=== PATIENT | female | born 1940 | race Caucasian/White ===

== ENCOUNTER → 2017-09-14 | Outpatient (CLI) | payer MEDICARE, OTHER ==
[~2017-09-14] MED LIST: ACIDOPHILUS1 EAC1 PO; ADVIL; ALBU90OI6 INH; ALBU90OI61 INH; ALLO100 PO; ALOE VERA CAPSULE PO; ASPI325; ASPI81CH PO; ASPI81EC PO; ATOR10; B Complete1 EACH PO; BALANCED B-1001 EACH; BUME2; CALCA600CH; CALMAGZIN PO; CHOL10002; CHOL10002 PO; CHONDROITIN; CO Q10 PO; CO Q10100 MG PO; CONEST.625; CONESTTC VAG; CREON DR 12,001 EACH PO; CREON DR 24,001 EACH PO; CYAN100; Co Q-10100 MG PO; DIGO.25; DIGO.25 PO; DIPASPER; DRON400T PO; Desyrel50 MG PO; ERGO400 PO; FURO40 PO; Folic Acid0.8 MG PO; GLUCHON; HYDACE5 PO; HYDCHL25 PO; HYDR1TAB94 PO; IBUHYD PO; LISI20; LISI20 PO; LISI5 PO; LORTAB 7.5-3251 EACH PO; Lipo-Flavonoid1 EACH PO; MAGCHL64ER PO; MAGOXI400 PO; MECL25 PO; MEDR10 PO; METO25ER PO; METO50ER PO; METR500 PO; MILK THISTLE; MSM; MULTAQ 400 MG; MULTAQ 400 MG PO; MULTAQ PO; MULVITMIND PO; MULVITMINF PO; Micro-K10 MEQ; NITR.4SL; NYST100TC TOP; NYST100TO TOP; OMEP20ER PO; OXYACE5T PO; OXYC10ER PO; POTA10T PO; POTASSIUM; POTCHL10ER PO; PRED20 PO; PSYL5.85P PO; RALO60; RANI150; RANI150 PO; SANCTURA XR PO; SIMV20 PO; SIMV80 PO; SOTO80 PO; SULTRIDS PO; TOLT2 PO; TOLT4 PO; TRAZ50; TRAZ50 PO; TRIHYD; TRIHYD253A; TYLENOL; UBID10 PO; UBID100 PO; VICODIN 5-3001 EACH; VITAMIN D; VITAMIN D32000 UNI1 PO; VITB100; VITB100 PO; WARF3 PO; WARF4 PO; WARF5; WARF5 PO; [UNRECOGNIZED DRUG - OTHER]; [UNRECOGNIZED DRUG - OTHER] PO
[2017-09-14 14:40] LABS: BASOPHILS ABSOLUTE AUTO 0.04 K/mm3 (0.00-0.23); BASOPHILS PERCENT AUTO 1 % (0-2); EOSINOPHILS ABSOLUTE AUTO 0.07 K/mm3 (0.00-0.68); EOSINOPHILS PERCENT AUTO 1 % (0-6); Hematocrit 38.1 % (33.0-51.0); Hemoglobin 12.9 g/dL (11.5-16.0); IMMATURE GRAN ABSOLUTE AUTO 0.03 K/mm3 (0.00-0.10); IMMATURE GRAN PERCENT AUTO 0 % (0-1); LYMPHOCYTES ABSOLUTE AUTO 1.14 K/mm3 (0.84-5.20); LYMPHOCYTES PERCENT AUTO 14 % (21-46); MONOCYTES ABSOLUTE AUTO 0.88 K/mm3 (0.16-1.47); MONOCYTES PERCENT AUTO 11 % (4-13); Mean Corpuscular HGB 34.3 pg (26.0-34.0); Mean Corpuscular HGB Conc 33.9 g/dL (31.5-36.5); Mean Corpuscular Volume 101 fL (80-100); Mean Platelet Volume 9.5 fL (9.1-12.4); NEUTROPHILS ABSOLUTE AUTO 5.81 K/mm3 (1.96-9.15); NEUTROPHILS PERCENT AUTO 73 % (41-73); Platelet Count 160 K/mm3 (150-400); RDW Coefficient Variation 12.7 % (11.7-14.2); RDW Standard Deviation 47.2 fL (35.1-46.3); Red Blood Cell Count 3.76 M/mm3 (3.80-5.20); White Blood Cell Count 7.97 K/mm3 (4.00-11.30)
[2017-09-14 14:46] LABS: Bun/Creatinine Ratio 19.5 (12.0-20.0); Calcium, Blood 8.6 mg/dL (8.5-10.1); Creatinine, Blood 1.28 mg/dL (0.40-1.00)
== END ==
LOC: LAB SHORT 14:27 → LAB EV 14:27
PROVIDERS: Family Medicine
DX: R10.31 Right lower quadrant pain (principal)
CPT/HCPCS: 80048; 85025; 87077; 87086; 87147; 87186

== ENCOUNTER → 2017-10-23 | Outpatient (CLI) | payer MEDICARE, OTHER | END | disposition home or self-care (01) | LOC: LAB EV 17:30 → LAB SHORT 17:30 | DX: N39.0 Urinary tract infection, site not specified (principal) | CPT/HCPCS: 87077; 87086; 87186 ==

== ENCOUNTER 2018-02-01 09:37 | Day surgery (SDC) | payer MEDICARE, OTHER ==
[~2018-02-01] VITALS: Ht 160 cm; Wt 82.4 kg
[2018-02-01] MEDS ORDERED: XARELTO15 MG (11:00)
== END 2018-02-01 12:25 | disposition home or self-care (01) ==
LOC: ORSCSDS 09:37
PROVIDERS: Surgery
PROC: 0DBL8ZX Excision of Transverse Colon, Via Natural or Artificial Opening Endoscopic, Diagnostic (ICD-10-PCS; principal; 2018-02-01 10:45)
PROC: 0DBK8ZX Excision of Ascending Colon, Via Natural or Artificial Opening Endoscopic, Diagnostic (ICD-10-PCS; principal; 2018-02-01 10:45)
PROC: 0DBM8ZX Excision of Descending Colon, Via Natural or Artificial Opening Endoscopic, Diagnostic (ICD-10-PCS; principal; 2018-02-01 10:45)
DX: Z12.11 Encounter for screening for malignant neoplasm of colon (principal); D12.2 Benign neoplasm of ascending colon; D12.3 Benign neoplasm of transverse colon; K63.5 Polyp of colon; Z86.010 Personal history of colon polyps; Z87.891 Personal history of nicotine dependence; I10 Essential (primary) hypertension; I48.0 Paroxysmal atrial fibrillation; E78.5 Hyperlipidemia, unspecified; I25.10 Atherosclerotic heart disease of native coronary artery without angina pectoris; Z86.718 Personal history of other venous thrombosis and embolism; Z86.73 Personal history of transient ischemic attack (TIA), and cerebral infarction without residual deficits; Z79.899 Other long term (current) drug therapy
CPT/HCPCS: 88305; J7120

== ENCOUNTER → 2018-04-13 | Outpatient (CLI) | payer MEDICARE, OTHER ==
[~2018-04-13] MED LIST changes: +XARELTO15 MG
[2018-04-13 15:32] LABS: BASOPHILS ABSOLUTE AUTO 0.04 K/mm3 (0.00-0.23); BASOPHILS PERCENT AUTO 1 % (0-2); EOSINOPHILS ABSOLUTE AUTO 0.09 K/mm3 (0.00-0.68); EOSINOPHILS PERCENT AUTO 2 % (0-6); Hemoglobin 14.3 g/dL (11.5-16.0); IMMATURE GRAN ABSOLUTE AUTO 0.02 K/mm3 (0.00-0.10); IMMATURE GRAN PERCENT AUTO 0 % (0-1); LYMPHOCYTES ABSOLUTE AUTO 1.47 K/mm3 (0.84-5.20); LYMPHOCYTES PERCENT AUTO 29 % (21-46); MONOCYTES ABSOLUTE AUTO 0.57 K/mm3 (0.16-1.47); MONOCYTES PERCENT AUTO 11 % (4-13); Mean Corpuscular HGB 34.5 pg (26.0-34.0); Mean Corpuscular Volume 101 fL (80-100); Mean Platelet Volume 9.4 fL (9.1-12.4); NEUTROPHILS ABSOLUTE AUTO 2.85 K/mm3 (1.96-9.15); NEUTROPHILS PERCENT AUTO 57 % (41-73); Platelet Count 161 K/mm3 (150-400); RDW Coefficient Variation 12.5 % (11.7-14.2); RDW Standard Deviation 46.9 fL (35.1-46.3); Red Blood Cell Count 4.14 M/mm3 (3.80-5.20); White Blood Cell Count 5.04 K/mm3 (4.00-11.30)
[2018-04-13 15:43] LABS: Albumin, Blood 3.5 g/dL (3.4-5.0); Albumin/Globulin Ratio 0.9 (0.8-1.8); Bilirubin, Total 0.5 mg/dL (0.1-1.0); Bun/Creatinine Ratio 14.1 (12.0-20.0); Calcium, Blood 8.8 mg/dL (8.5-10.1); Creatinine, Blood 1.35 mg/dL (0.40-1.00); Globulin, Blood 3.8 g/dL (2.2-4.0); Potassium, Blood 4.2 mmol/L (3.5-5.5); Total Protein, Blood 7.3 g/dL (6.4-8.2)
== END | disposition home or self-care (01) ==
LOC: LAB EV 15:26 → LAB SHORT 15:26
PROVIDERS: Physician Assistant
DX: R60.9 Edema, unspecified (principal)
CPT/HCPCS: 80053; 83880; 85025

== ENCOUNTER → 2018-09-25 | Outpatient (CLI) | payer MEDICARE, OTHER | END | disposition home or self-care (01) | LOC: LAB EV 15:55 → LAB SHORT 15:55 | DX: R30.0 Dysuria (principal) | CPT/HCPCS: 87077; 87086; 87186 ==

== ENCOUNTER → 2018-11-07 | Outpatient (CLI) | payer MEDICARE, OTHER ==
[~2018-11-07] MED LIST changes: +CYAN500 PO; +TRIM100 PO
[2018-11-07 18:13] LABS: BASOPHILS ABSOLUTE AUTO 0.03 K/mm3 (0.00-0.23); BASOPHILS PERCENT AUTO 0 % (0-2); EOSINOPHILS ABSOLUTE AUTO 0.04 K/mm3 (0.00-0.68); EOSINOPHILS PERCENT AUTO 1 % (0-6); Hematocrit 43.1 % (33.0-51.0); Hemoglobin 14.5 g/dL (11.5-16.0); IMMATURE GRAN ABSOLUTE AUTO 0.03 K/mm3 (0.00-0.10); IMMATURE GRAN PERCENT AUTO 0 % (0-1); LYMPHOCYTES ABSOLUTE AUTO 1.12 K/mm3 (0.84-5.20); LYMPHOCYTES PERCENT AUTO 13 % (21-46); MONOCYTES ABSOLUTE AUTO 0.68 K/mm3 (0.16-1.47); MONOCYTES PERCENT AUTO 8 % (4-13); Mean Corpuscular HGB 34.3 pg (26.0-34.0); Mean Corpuscular HGB Conc 33.6 g/dL (31.5-36.5); Mean Corpuscular Volume 102 fL (80-100); Mean Platelet Volume 9.9 fL (9.1-12.4); NEUTROPHILS ABSOLUTE AUTO 6.84 K/mm3 (1.96-9.15); NEUTROPHILS PERCENT AUTO 78 % (41-73); Platelet Count 164 K/mm3 (150-400); RDW Coefficient Variation 12.6 % (11.7-14.2); RDW Standard Deviation 47.3 fL (35.1-46.3); Red Blood Cell Count 4.23 M/mm3 (3.80-5.20); White Blood Cell Count 8.74 K/mm3 (4.00-11.30)
[2018-11-07 18:21] LABS: Albumin, Blood 3.5 g/dL (3.4-5.0); Albumin/Globulin Ratio 0.9 (0.8-1.8); Bilirubin, Total 1.1 mg/dL (0.1-1.0); Creatinine, Blood 1.31 mg/dL (0.40-1.00); Potassium, Blood 4.8 mmol/L (3.5-5.5); Total Protein, Blood 7.5 g/dL (6.4-8.2)
== END ==
LOC: LAB EV 18:05 → LAB SHORT 18:05
PROVIDERS: Physician Assistant
DX: R10.31 Right lower quadrant pain (principal)
CPT/HCPCS: 80053; 83690; 85025

== ENCOUNTER 2018-11-08 16:18 | Inpatient (IN) | payer MEDICARE, OTHER ==
[~2018-11-08] VITALS: Ht 160 cm; Wt 89.8 kg
[~2018-11-08 16:18] MED LIST changes: -CYAN500 PO; -TRIM100 PO; -XARELTO15 MG; +XARELTO15 MG PO
--- NOTE | 2018-11-08 17:09 | NUR ---
PT RECENTLY TO ROOM. ASSISTED WITH ADL'S AND ROOM BY OTHER FEMALE RN AND FINANCIAL OPERATIONS ANALYST. FAMILY PRESENT. DR CURRY RECENTLY TO ROOM TO SEE PT. DISCUSSED WITH THAT PT REPORTED TO BE REPORTED TO HAVE UTI EARLIER TODAY.
[2018-11-08 18:55] LABS: Source, Urine Clean Catch
[2018-11-08 19:02] LABS: Bilirubin, Urine Neg (Neg); Blood, Urine 2+ (Neg); Glucose Qualitative, Urine Neg (Neg); Ketones, Urine Neg (Neg); Leukocyte Esterase, Urine 1+ (Neg); Nitrite, Urine Neg (Neg); Protein, Urine 3+ (Neg); Specific Gravity, Urine 1.015 (1.003-1.022); Urobilinogen, Urine NORM (Normal)
--- NOTE | 2018-11-08 19:20 | NUR ---
REPORT GIVEN TO HS RN, FAMILY PRESENT.
[2018-11-08 20:19] LABS: Appearance, Urine Clear (Clear); Color, Urine Yellow (P-Yellow)
[2018-11-08 20:20] LABS: Bacteria Few /hpf; Red Blood Cells, Urine Rare /hpf (0-2); Squamous Epithelial Cells Rare /hpf (Few); White Blood Cells, Urine 0-2 /hpf (0-5)
[2018-11-08] MEDS ORDERED: CYAN500 PO (20:27)
[2018-11-08] MEDS ORDERED: TRIM100 PO (20:28)
[2018-11-09 04:56] LABS: BASOPHILS ABSOLUTE AUTO 0.01 K/mm3 (0.00-0.23); BASOPHILS PERCENT AUTO 0 % (0-2); EOSINOPHILS ABSOLUTE AUTO 0.03 K/mm3 (0.00-0.68); EOSINOPHILS PERCENT AUTO 0 % (0-6); Hematocrit 39.7 % (33.0-51.0); IMMATURE GRAN ABSOLUTE AUTO 0.03 K/mm3 (0.00-0.10); IMMATURE GRAN PERCENT AUTO 0 % (0-1); LYMPHOCYTES ABSOLUTE AUTO 0.91 K/mm3 (0.84-5.20); LYMPHOCYTES PERCENT AUTO 10 % (21-46); MONOCYTES ABSOLUTE AUTO 0.66 K/mm3 (0.16-1.47); MONOCYTES PERCENT AUTO 7 % (4-13); Mean Corpuscular HGB 34.9 pg (26.0-34.0); Mean Corpuscular HGB Conc 32.7 g/dL (31.5-36.5); Mean Platelet Volume 10.2 fL (9.1-12.4); NEUTROPHILS PERCENT AUTO 82 % (41-73); Platelet Count 130 K/mm3 (150-400); RDW Coefficient Variation 12.6 % (11.7-14.2); Red Blood Cell Count 3.72 M/mm3 (3.80-5.20); White Blood Cell Count 8.94 K/mm3 (4.00-11.30)
[2018-11-09 05:03] LABS: Mean Corpuscular Volume 107 fL (80-100)
[2018-11-09 05:16] LABS: Albumin, Blood 2.6 g/dL (3.4-5.0); Albumin/Globulin Ratio 0.7 (0.8-1.8); Bilirubin, Total 1.6 mg/dL (0.1-1.0); Bun/Creatinine Ratio 13.8 (12.0-20.0); Calcium, Blood 8.1 mg/dL (8.5-10.1); Creatinine, Blood 1.45 mg/dL (0.40-1.00); Globulin, Blood 3.9 g/dL (2.2-4.0); Potassium, Blood 4.1 mmol/L (3.5-5.5); Total Protein, Blood 6.5 g/dL (6.4-8.2)
--- NOTE | 2018-11-09 15:00 | NUR ---
ASSUMED CARE OF PATIENT AT 1450. MEDICATED FOR PAIN PER PATIENT REQUEST. WILL MONITOR.
--- NOTE | 2018-11-09 18:20 | NUR ---
PATIENT MEDICATED FOR PAIN, THEN SLEPT. UP WITH 2 PERSON ASSIST TO VOID. BACK TO BED. NO C/O AT THIS TIME. PATIENT REQUIRES REMINDERS RE: CONDITION AND PLAN OF CARE, NPO.
--- NOTE | 2018-11-10 05:23 | NUR ---
SHIFT SUMMARY LYING IN SEMI FOWLERS WITH EYES CLOSED. HAD 1 WATERY BROWN BM WITH PARTICULATES. DENIES FURTHER PAIN, DISCOMFORT, OR OTHER NEEDS AT THIS TIME. SAFETY MEASURES IN PLACE. WILL GIVE HAND OFF TO ONCOMING SHIFT USING SBAR.
--- NOTE | 2018-11-10 11:59 | NUR ---
ASSESSMENT ASSESSMENT REVIEWED BY DAPHNE STUDENT NURSE. BLE APPEAR DUSKY, PULSES PRESENT AND PALPABLE, CAP REFILL WNL. PT GETTING UP TO VOID FREQUENTLY. PT IS A 1-2 ASSIST WITH WALKER AND GAIT BELT WHEN OOB.
--- NOTE | 2018-11-10 17:22 | NUR ---
SHIFT SUMMARY PT WAS ADMITTED FOR APPENDICITIS, PT ALSO HAS INFLAMMATION OF ILLEUM, 1 PERSON TRANSFER WITH GAIT BELT AND WALKER; USES BEDPAN, COMMODE, AND ATTENDS/PULLUPS. PT HAS ACTIVE UTI AND IS ON ISO PRECAUTIONS FOR ESBL. PT HAS CT SCAN TOMOROW AND CONTRAST DRINK IS IN THE ROOM TO BE STARTED AT 2200, XERALTO IS ON HOLD, PT IS ON TELE, HX A-FIB, STRESS INCONTINENCE.
--- NOTE | 2018-11-10 18:34 | NUR ---
SHIFT SUMMARY PAIN HAS BEEN MANAGED WITH REPOSITIONING THIS SHIFT. PT IS A 1 ASSIST WITH GAIT BELT AND WALKER WHEN OOB. PT HAS URINARY URGENCY. PLAN FOR CT SCAN TOMORROW TO RE-EVALUATE ILEITIS AND APPENDICITIS. PT WILL START OVERNIGHT PREP AT 2200. VSS. WILL MONITOR UNTIL REPORT TO ONCOMING RN.
[2018-11-11 04:50] LABS: BASOPHILS ABSOLUTE AUTO 0.01 K/mm3 (0.00-0.23); BASOPHILS PERCENT AUTO 0 % (0-2); EOSINOPHILS ABSOLUTE AUTO 0.13 K/mm3 (0.00-0.68); EOSINOPHILS PERCENT AUTO 2 % (0-6); Hematocrit 33.8 % (33.0-51.0); IMMATURE GRAN ABSOLUTE AUTO 0.03 K/mm3 (0.00-0.10); IMMATURE GRAN PERCENT AUTO 0 % (0-1); LYMPHOCYTES ABSOLUTE AUTO 0.77 K/mm3 (0.84-5.20); LYMPHOCYTES PERCENT AUTO 11 % (21-46); MONOCYTES ABSOLUTE AUTO 0.65 K/mm3 (0.16-1.47); MONOCYTES PERCENT AUTO 10 % (4-13); Mean Corpuscular HGB 34.9 pg (26.0-34.0); Mean Corpuscular HGB Conc 32.5 g/dL (31.5-36.5); Mean Corpuscular Volume 107 fL (80-100); Mean Platelet Volume 9.5 fL (9.1-12.4); NEUTROPHILS ABSOLUTE AUTO 5.23 K/mm3 (1.96-9.15); NEUTROPHILS PERCENT AUTO 77 % (41-73); Platelet Count 139 K/mm3 (150-400); RDW Coefficient Variation 12.2 % (11.7-14.2); RDW Standard Deviation 47.9 fL (35.1-46.3); Red Blood Cell Count 3.15 M/mm3 (3.80-5.20); White Blood Cell Count 6.82 K/mm3 (4.00-11.30)
[2018-11-11 05:09] LABS: Anion Gap 5 mmol/L (6-16); Blood Urea Nitrogen 16 mg/dL (8-24); Bun/Creatinine Ratio 17.1 (12.0-20.0); CO2, Blood 26 mmol/L (21-32); Calcium, Blood 8.1 mg/dL (8.5-10.1); Chloride, Blood 106 mmol/L (98-108); Creatinine, Blood 0.94 mg/dL (0.40-1.00); Glomerular Filtration Rate >60 (60-); Glucose, Blood 117 mg/dL (70-99); Magnesium, Blood 2.1 mg/dL (1.6-2.4); Phosphorus, Blood 2.5 mg/dL (2.5-4.9); Potassium, Blood 3.8 mmol/L (3.5-5.5); Sodium, Blood 137 mmol/L (136-145)
--- NOTE | 2018-11-11 07:12 | NUR ---
SHIFT SUMMARY LYING IN SEMI FOWLERS WITH EYES CLOSED. RESTED WELL THIS SHIFT. TO DRINK NEXT DOSE OF CT CONTRAST. DENIES PAIN, DISCOMFORT, OR FURTHER NEEDS AT THIS TIME. SAFETY MEASURES IN PLACE. WILL GIVE HAND OFF TO ONCOMING SHIFT USING SBAR.
--- NOTE | 2018-11-11 07:20 | NUR ---
ASSESSMENT PT WAS ASSESSED BY THIS RN. SHIFT ASSESSMENT DOCUMENTATION BY DAPHNE STUDENT NURSE WAS REVIEWED AND THIS RN AGREES WITH DOCUMENTATION.
--- NOTE | 2018-11-11 11:29 | NUR ---
PT EDUCATION GAVE PATIENT AN INSPIRATION SPIROMETER AND INSTRUCTED THEM ON ITS PURPOSE AND USE.
--- NOTE | 2018-11-11 15:49 | NUR ---
ELEVATED BP BP ELEVATED WITH AFTERNOON VS. PT REPORTED PAIN, DILAUDID GIVEN. BP REASSESSED SBP GREATER THAN 160. HYDRALAZINE ADMINISTERED PER ORDER. WILL MONITOR.
--- NOTE | 2018-11-11 18:17 | NUR ---
CHEST PAIN, INCREASED BP AND CHEST PAIN PT COMPLAINED OF CHEST PAIN AND FELLING LIKE HER HEART WAS RACING AT APPROXIMATELY 1647; BP OF 180/78 AND HR OF 124 AT THAT TIME. EKG WAS DONE BY USHA BARRAGAN, EKG SHOWED AFIB WITH RVR. DR. CURRY CONTACTED WITH RESULTS OF EKG. METOPROLOL 5MG IV WAS GIVEN, TELE IN PLACE. BP AND HR RE-ASSESSED AT 1736, BP OF 166/[address] CURRY NOTIFIED OF CONTINUED CHEST PAIN AND HEAVINESS. NITRO ORDERED AND GIVEN AT 1748, PT STATED IT DID NOT HELP TO RELIEVE PAIN. BP EVALUATED AT 1750 141/60 HR OF 103. SECOND DOSE OF NITRO WAS GIVEN AT 1756 BP 112/67. 1801 PT DENIED CHEST PAIN, REPORTED MILD TIGHTNESS, BP 124/64. PT ALSO REPORTING INCREASED PAIN TO RLQ. DR. PATRICIO NOTIFIED OF PT'S CHANGE IN CONDITION PER DR. CURRY'S REQUEST. PT REMAINS IN AFIB AT THIS TIME. PT HAS REMAINED ALERT AND ORIENTED WITH USUAL FORGETFULNESS. WILL CONTINUE TO MONITOR.
--- NOTE | 2018-11-11 18:42 | NUR ---
ATTEMPTED TO PLACE CALL TO DR. CURRY, PHONE WAS NOT ANSWERED. INITIAL CALL PLACED TO DR. CURRY SINCE HE WAS THE DOCTOR COVERING FOR EFM DURING DAY SHIFT. CALL PLACED TO DR. HILARIO HOSPITALIST WHO IS [employer] AFTER 5PM. DR. HILARIO NOTIFIED THAT PT REMAINS IN AFIB GREATER THAN 120BPM, AND CONTINUED CHEST TIGHTNESS. PT IS SOMEWHAT UNRELIABLE WHEN REPORTING PAIN. WHEN ASKED ABOUT PAIN SHE REPORTS ABD PAIN. WHEN ASKED ABOUT CHEST PAIN SHE REPORTS TIGHTNESS BUT DENIES NEED FOR MEDICATION TO TREAT CHEST DISCOMFORT. FLACC SCALE SHOWS PT AT 2/10 FOR PAIN. ACCORDING TO TELE MONITOR PT RAPIDLY CHANGES BETWEEN AFIB >[address] HILARIO WAS NOTIFIED OF PT'S HR AND CONTINUED CHEST DISCOMFORT. DR. HILARIO MADE CHANGES TO ANTIBIOTICS AND ORDERED A ONE TIME DOSE OF METOPROLOL TARTRATE, AND LACTIC ACID. AFTER RECEIVING ORDERS FROM DR. HILARIO, DR. CURRY RETURNED EARLIER CALL AND GAVE ORDERS TO TRANSFER PT TO PCU. CLINICAL COORDINATOR LEIA NASSAR RN AND NONA RN NOTIFIED OF ORDERS. PT REMAINS ALERT AND PLEASANTLY CONFUSED/ FORGETFUL. PT'S DAUGHTER KELLY NOTIFIED OF CHANGE IN PT'S CONDITION AND PLAN TO TRANSFER TO PCU PER THE PATIENT'S REQUEST.
--- NOTE | 2018-11-11 19:20 | NUR ---
SHIFT SUMMARY PT WAS ADMITTED FOR APPEDICITIS, IS IN ISO FOR esbl IN URINE, PT HAD ct SCAN THIS AM, XERALTO IS ON HOLD FOR A-FIB, PT IS ON HEPARIN, PT IS FORGETFUL. PT WENT INTO A-FIB THIS PM, WAS GIVEN 5MG IV METOPROLOL AND NITROGLYCERIN FOR CHEST TIGHTNESS. CURRENTLY RECEIVING CLINIMIX. HAS URGENCY INCONTENANCE, IS ON TELE, PT IS NPO,
--- NOTE | 2018-11-11 20:05 | NUR ---
SHIFT SUMMARY ABD PAIN HAS BEEN MANAGED WITH DILAUDID THIS SHIFT. PT HAS BEEN PLEASANTLY CONFUSED/FORGETFUL. PT HAS DIFFICULTY GIVING A PAIN RATING. PT WENT INTO AFIB WITH CHEST PAIN THIS AFTERNOON. PLAN TO TRANSFER TO PCU AT THIS TIME. REPORT GIVEN TO NONA BARRAGAN.
[2018-11-12 04:37] LABS: Hematocrit 36.1 % (33.0-51.0); Hemoglobin 11.9 g/dL (11.5-16.0); Mean Corpuscular HGB 34.1 pg (26.0-34.0); Mean Platelet Volume 9.8 fL (9.1-12.4); Platelet Count 162 K/mm3 (150-400); RDW Coefficient Variation 12.3 % (11.7-14.2); RDW Standard Deviation 46.1 fL (35.1-46.3); Red Blood Cell Count 3.49 M/mm3 (3.80-5.20); White Blood Cell Count 5.33 K/mm3 (4.00-11.30)
[2018-11-12 04:40] LABS: Mean Corpuscular Volume 103 fL (80-100)
[2018-11-12 04:57] LABS: Alanine Aminotransfer (ALT/SGP 23 U/L (12-78); Albumin, Blood 2.2 g/dL (3.4-5.0); Albumin/Globulin Ratio 0.5 (0.8-1.8); Alk Phos 64 U/L (50-136); Anion Gap 6 mmol/L (6-16); Aspartate Aminotrans (AST/SGOT 37 U/L (12-37); Bilirubin, Total 0.5 mg/dL (0.1-1.0); Blood Urea Nitrogen 14 mg/dL (8-24); Bun/Creatinine Ratio 17.3 (12.0-20.0); CO2, Blood 25 mmol/L (21-32); Calcium, Blood 8.5 mg/dL (8.5-10.1); Chloride, Blood 109 mmol/L (98-108); Creatinine, Blood 0.81 mg/dL (0.40-1.00); Globulin, Blood 4.1 g/dL (2.2-4.0); Glomerular Filtration Rate >60 (60-); Glucose, Blood 119 mg/dL (70-99); Potassium, Blood 3.7 mmol/L (3.5-5.5); Sodium, Blood 140 mmol/L (136-145); Total Protein, Blood 6.3 g/dL (6.4-8.2)
--- NOTE | 2018-11-12 07:26 | NUR ---
SHIFT SUMMARY REPORT RECEIVED FROM YUNG CASTELLANO AND PATIENT TRANSFERED TO PCU 13 AT APPROX 2031 LAST NIGHT. PATIENT WAS IN AFIB IN THE LOW 100'S UPON ARRIVAL TO THE UNIT. AT APPROX 2230 PATIENT CONVERTED TO SINUS RHYTHM IN THE 70'S AND HAS BEEN SINUS RHYTHM THROUGHOUT THE REST OF THE NIGHT PER UNIVERSITY PRESIDENT. PATIENT FORGETFUL BUT PLEASENT UPON ARIVAL TO THE UNIT. PATIENT STATED THAT HER CHEST, "FELT A LITTLE FUNNY." BUT HAD NO FURTHER COMPLAINTS OF CHEST PAIN OR DISCOMFORT THROUGHOUT THE NIGHT. PATIENT'S IV FLUIDS AND CLINIMIX RUNNING PER ORDERS. IV ABX GIVEN PER ORDERS LAST NIGHT. PATIENT APPEARED TO SLEEP WELL THROUGHOUT THE NIGHT. PATIENT CURRENTLY APPEARS TO BE ASLEEP. REPORT GIVEN TO ONCLISANDRO BARRAGAN.
--- NOTE | 2018-11-12 08:52 | NUR ---
Received report and assumed care of patient. When patient awakes, she is up to BSC. Pt able to get up SBA. Pt is on RA and continues to be in NSR in 60's. Dr. Pires to see pt this AM he states that he is going to hold of on surgery at this point. He would like her diet advanced to clear liquid and see how she tolerates. Dr. Barragan to the room, agrees with Dr. Pires and will follow care. Will continue to follow orders and monitor patient. Call light within easy reach, bed armed and locked, non-skid socks in place, SCDs on for safety.
--- NOTE | 2018-11-12 19:29 | NUR ---
PT HAD A GOOD DAY TODAY, SHE IS FORGETFUL BUT PLEASANT, SHE FOLLOWS DIRECTIONS AND EXPRESSES HER NEEDS APPROPRIATELY. DAUGHTER CAME IN TODAY AND STATES SHE IS CONCERNED ABOUT HER MOTHER'S FORGETFULNESS AND SAFETY CONCERNS WHEN PATIENT DISCHARGES HOME. PT TOLERATED DIET WELL TODAY, SHE CONTINUES TO HAVE SOFT/LIQUID STOOLS. PT ABLE TO GO TO BSC WITH SBA. PT REPORTS THAT SHE IS COLD, SHE HAS BEEN AFEBRILE THROUGHOUT THE DAY SHIFT, WARM BLANKETS HAVE BEEN PROVIDED. WILL CONTINUE TO MONITOR AND GIVE REPORT TO NOC RN.
[2018-11-13 04:48] LABS: BASOPHILS ABSOLUTE AUTO 0.03 K/mm3 (0.00-0.23); BASOPHILS PERCENT AUTO 1 % (0-2); EOSINOPHILS PERCENT AUTO 4 % (0-6); Hematocrit 35.4 % (33.0-51.0); Hemoglobin 11.5 g/dL (11.5-16.0); IMMATURE GRAN ABSOLUTE AUTO 0.06 K/mm3 (0.00-0.10); IMMATURE GRAN PERCENT AUTO 1 % (0-1); LYMPHOCYTES ABSOLUTE AUTO 0.99 K/mm3 (0.84-5.20); LYMPHOCYTES PERCENT AUTO 21 % (21-46); MONOCYTES ABSOLUTE AUTO 0.61 K/mm3 (0.16-1.47); MONOCYTES PERCENT AUTO 13 % (4-13); Mean Corpuscular HGB Conc 32.5 g/dL (31.5-36.5); Mean Corpuscular Volume 105 fL (80-100); Mean Platelet Volume 10.6 fL (9.1-12.4); NEUTROPHILS ABSOLUTE AUTO 2.81 K/mm3 (1.96-9.15); NEUTROPHILS PERCENT AUTO 60 % (41-73); Platelet Count 182 K/mm3 (150-400); RDW Coefficient Variation 12.5 % (11.7-14.2); Red Blood Cell Count 3.38 M/mm3 (3.80-5.20)
[2018-11-13 05:18] LABS: Alanine Aminotransfer (ALT/SGP 27 U/L (12-78); Albumin, Blood 2.2 g/dL (3.4-5.0); Albumin/Globulin Ratio 0.6 (0.8-1.8); Alk Phos 63 U/L (50-136); Anion Gap 7 mmol/L (6-16); Aspartate Aminotrans (AST/SGOT 35 U/L (12-37); Bilirubin, Total 0.4 mg/dL (0.1-1.0); Blood Urea Nitrogen 14 mg/dL (8-24); Bun/Creatinine Ratio 18.1 (12.0-20.0); CO2, Blood 24 mmol/L (21-32); Calcium, Blood 8.3 mg/dL (8.5-10.1); Chloride, Blood 111 mmol/L (98-108); Creatinine, Blood 0.77 mg/dL (0.40-1.00); Globulin, Blood 3.9 g/dL (2.2-4.0); Glomerular Filtration Rate >60 (60-); Glucose, Blood 116 mg/dL (70-99); Potassium, Blood 3.7 mmol/L (3.5-5.5); Sodium, Blood 142 mmol/L (136-145); Total Protein, Blood 6.1 g/dL (6.4-8.2)
--- NOTE | 2018-11-13 07:28 | NUR ---
PCU NOC SHIFT SUMMARY PATIENT ALERT AND ORIENTED X4 T/O SHIFT. PATIENT DENIES ANY PAIN AT THIS TIME BUT DID HAVE 1 REPORTING OF ABD PAIN RELIEVED WITH MEDICATIONS PER EMAR. RESP E/U ON ROOM AIR. PATIENT AMBULATING TO BATHROOM FOR RESTROOM DUTIES. PATIENT REPORTS THAT SHE IS WANTING TO GO HOME. PATIENT DENIES ANY NEEDS AT THIS TIME. HR REMAINS NSR T/O SHIFT. REPORTED OFF TO DAYSHIFT YUNG BRIONES.
--- NOTE | 2018-11-13 09:43 | NUR ---
RECEIVED REPORT AND ASSUMED CARE OF PATIENT AT SHIFT CHANGE. PT IS A LITTLE IRRITABLE WITH STAFF THIS AM, SHE STATES SHE IS READY TO GO HOME. PT HAS EXHIBITED FORGETFULNESS AND SOME CONFUSION. PT ON ROOM AIR WITH O2 SAT > 95%. PT ABLE TO GET UP AND MOVE AROUND ROOM WITH FWW, AND SHE CAN STAND AND TRANSFER TO BSC WITH A SBA. DR COLLINS AT BEDSIDE, HE ORDERED TO STOP NS AND CLIMIX AND ADVANCE DIET TO FULL LIQUID. TRANSFER ORDERS PLACED TO MOVE PT TO MEDICAL FLOOR. PT TOLERATING CLEAR WELL AND CONTINUES TO HAVE BM. WILL CONTINUE TO MONITOR AND FOLLOW ORDERS. BED LOCKED AND LOW, ALARM SET FOR SAFETY, NON-SKID SOCKS ON AND CALL LIGHT WITHIN EASY REACH.
--- NOTE | 2018-11-13 11:58 | NUR ---
PT TRANSFER TO 224 INITIATED, REPORT GIVEN TO YUNG PIZANO ON SURGICAL FLOOR. WILL PREPARE PATIENT AND HER BELONGINGS AND TRANFER TO ROOM 224.
--- NOTE | 2018-11-13 12:00 | NUR ---
PT WORKED WITH OT, PT ABLE TO GET UP AND AROUND ROOM WELL, AFTER PT USED BATHROOM AND WENT BACK TO THE CHAIR SHE REPORTED SOME PAIN IN HER RIGHT ABDOMEN. WILL FOLLOW UP AND FIND OUT IF PATIENT NEEDS ANY MEDICATION BEFORE TRANSFER.
--- NOTE | 2018-11-13 15:48 | NUR ---
SHIFT SUMMARY PT HAS DONE WELL SINCE ARRIVAL TO UNIT. 1 ASSIST W/FWW TO BATHROOM. TOLERATING CLEAR LIQUIDS WITH NO N/V. HAS CONTINUED TO DENY PAIN. TAB ALARM IN PLACE PT DOES FORGET LIMITATIONS.
[2018-11-14 05:10] LABS: BASOPHILS ABSOLUTE AUTO 0.03 K/mm3 (0.00-0.23); BASOPHILS PERCENT AUTO 1 % (0-2); EOSINOPHILS ABSOLUTE AUTO 0.24 K/mm3 (0.00-0.68); EOSINOPHILS PERCENT AUTO 5 % (0-6); Hematocrit 35.6 % (33.0-51.0); Hemoglobin 11.7 g/dL (11.5-16.0); IMMATURE GRAN PERCENT AUTO 2 % (0-1); LYMPHOCYTES ABSOLUTE AUTO 1.09 K/mm3 (0.84-5.20); LYMPHOCYTES PERCENT AUTO 23 % (21-46); MONOCYTES ABSOLUTE AUTO 0.65 K/mm3 (0.16-1.47); MONOCYTES PERCENT AUTO 14 % (4-13); Mean Corpuscular HGB 34.4 pg (26.0-34.0); Mean Corpuscular HGB Conc 32.9 g/dL (31.5-36.5); Mean Corpuscular Volume 105 fL (80-100); Mean Platelet Volume 10.7 fL (9.1-12.4); NEUTROPHILS ABSOLUTE AUTO 2.56 K/mm3 (1.96-9.15); NEUTROPHILS PERCENT AUTO 55 % (41-73); Platelet Count 207 K/mm3 (150-400); RDW Coefficient Variation 12.4 % (11.7-14.2); White Blood Cell Count 4.67 K/mm3 (4.00-11.30)
--- NOTE | 2018-11-14 05:33 | NUR ---
SUMMARY: ADMIT DAY 2 INFLAMED SECUM AND AFIB WITH RVR ON HOSPITALIST AND DR. PATRICIO SERVICES. AFIB RESOLVED AND PT NSR WITH RATE OF 71; HYPERTENSIVE AND MEDICATED WITH PRN HYDRALAZINE. PT DENIES ABD PAIN AND MOVES WELL WITH HOURLY REQUESTS FOR BRP TO VOID; SBA WITH FWW FOR BRP. CONTINUE IV ANTIBIOTICS.
[2018-11-14 05:40] LABS: Alanine Aminotransfer (ALT/SGP 31 U/L (12-78); Albumin, Blood 2.3 g/dL (3.4-5.0); Albumin/Globulin Ratio 0.6 (0.8-1.8); Alk Phos 69 U/L (50-136); Anion Gap 6 mmol/L (6-16); Aspartate Aminotrans (AST/SGOT 36 U/L (12-37); Bilirubin, Total 0.3 mg/dL (0.1-1.0); Blood Urea Nitrogen 11 mg/dL (8-24); Bun/Creatinine Ratio 13.6 (12.0-20.0); CO2, Blood 25 mmol/L (21-32); Calcium, Blood 8.6 mg/dL (8.5-10.1); Chloride, Blood 111 mmol/L (98-108); Creatinine, Blood 0.81 mg/dL (0.40-1.00); Glomerular Filtration Rate >60 (60-); Glucose, Blood 87 mg/dL (70-99); Sodium, Blood 142 mmol/L (136-145); Total Protein, Blood 6.3 g/dL (6.4-8.2)
--- NOTE | 2018-11-14 12:30 | NUR ---
pt sitting in chair eating. this rn looking for new site for iv access. will call other staff for power glide.
--- NOTE | 2018-11-14 12:43 | NUR ---
staff on med floor aware of need for extended dwell or power glide.
--- NOTE | 2018-11-14 14:04 | NUR ---
SEE DR. PATRICIO'S NOTES. DR. Alexandr COLLINS CALLED AT 0200 TO MAKE AWARE THAT DR. PATRICIO HAS CLEARED PT FOR DISCHARGE. PER DR. COLLINS, ADVANCE PT DIET TO MECH SOFT AND PT TO STAY ONE MORE NIGHT. PT'S IV INFILTRATED. PER DR. COLLINS OK TO NOT RESTART AND ALSO DC TELE AT THIS TIME. ORDER FOR IV ANTIBIOTICS TO DISCONTINUE. WILL CTM PT STATUS
--- NOTE | 2018-11-14 19:12 | NUR ---
SUMMARY: PT HAS DONE WELL TODAY. DENIED PAIN/NAUSEA. VSS. PT IS FORGETFUL, REORIENTED PRN AND HAS BED/TAB ALARM. PT AND PT'S DAUGHTER TO MEET TOMORROW TO DISCUSS DISCHARGE LIVING ARRANGEMENTS. PT TOLERATING DIET, UP WITH SBA, IS VOIDING. NO ACUTE CONCERNS AND PLAN TO DC TOMORROW.
[2018-11-15 05:04] LABS: BASOPHILS ABSOLUTE AUTO 0.03 K/mm3 (0.00-0.23); BASOPHILS PERCENT AUTO 1 % (0-2); EOSINOPHILS ABSOLUTE AUTO 0.17 K/mm3 (0.00-0.68); EOSINOPHILS PERCENT AUTO 4 % (0-6); Hematocrit 35.7 % (33.0-51.0); Hemoglobin 11.7 g/dL (11.5-16.0); IMMATURE GRAN ABSOLUTE AUTO 0.08 K/mm3 (0.00-0.10); IMMATURE GRAN PERCENT AUTO 2 % (0-1); LYMPHOCYTES ABSOLUTE AUTO 1.15 K/mm3 (0.84-5.20); LYMPHOCYTES PERCENT AUTO 26 % (21-46); MONOCYTES ABSOLUTE AUTO 0.61 K/mm3 (0.16-1.47); MONOCYTES PERCENT AUTO 14 % (4-13); Mean Corpuscular HGB 34.6 pg (26.0-34.0); Mean Corpuscular HGB Conc 32.8 g/dL (31.5-36.5); Mean Corpuscular Volume 106 fL (80-100); Mean Platelet Volume 10.1 fL (9.1-12.4); NEUTROPHILS ABSOLUTE AUTO 2.33 K/mm3 (1.96-9.15); NEUTROPHILS PERCENT AUTO 53 % (41-73); Platelet Count 225 K/mm3 (150-400); RDW Coefficient Variation 12.7 % (11.7-14.2); RDW Standard Deviation 49.2 fL (35.1-46.3); Red Blood Cell Count 3.38 M/mm3 (3.80-5.20); White Blood Cell Count 4.37 K/mm3 (4.00-11.30)
--- NOTE | 2018-11-15 05:30 | NUR ---
SHIFT SUMMARY NO ACUTE CHANGES THIS SHIFT. VSS, O2 SATS >90% ON RA. PT DENIED PAIN THIS SHIFT, C/O ABD DISCOMFORT ONCE THIS SHIFT AND REP RELIEF AFTER BEING MEDICATED PER ORDERS. PT DENIED NAUSEA, LIGHTHEADEDNESS, AND SOB THIS SHIFT. SBA WITH FWW TO BATHROOM, VOIDING INDEPENDENTLY, ATTENDS IN PLACE DUE TO OCCASIONAL INCONTINENCE. PT IS CONFUSED ON OCCASION, REORIENTED NEEDED. PT AWAITING DISCHARGE 11/15/18.
[2018-11-15 05:32] LABS: Alanine Aminotransfer (ALT/SGP 32 U/L (12-78); Albumin, Blood 2.5 g/dL (3.4-5.0); Albumin/Globulin Ratio 0.6 (0.8-1.8); Alk Phos 66 U/L (50-136); Anion Gap 7 mmol/L (6-16); Aspartate Aminotrans (AST/SGOT 37 U/L (12-37); Bilirubin, Total 0.3 mg/dL (0.1-1.0); Blood Urea Nitrogen 12 mg/dL (8-24); Bun/Creatinine Ratio 12.9 (12.0-20.0); CO2, Blood 26 mmol/L (21-32); Calcium, Blood 8.5 mg/dL (8.5-10.1); Chloride, Blood 108 mmol/L (98-108); Creatinine, Blood 0.93 mg/dL (0.40-1.00); Globulin, Blood 3.9 g/dL (2.2-4.0); Glomerular Filtration Rate >60 (60-); Glucose, Blood 84 mg/dL (70-99); Sodium, Blood 141 mmol/L (136-145); Total Protein, Blood 6.4 g/dL (6.4-8.2)
[2018-11-15] MEDS ORDERED: ACET325 PO (11:43)
[2018-11-15] MEDS ORDERED: GALA8 PO (11:45)
[2018-11-15] MEDS ORDERED: PREVALITE PAC4 G/PKT PO (12:35)
--- NOTE | 2018-11-15 13:21 | NUR ---
DISCHARGE PT AND HER DAUGHTER WERE PROVIDED WITH WRITTEN AND VERBAL DISCHARGE INSTRUCTIONS. THEY REPORTED UNDERSTANDING AFTER QUESTIONS WERE ANSWERED. PT WAS ASSISTED OUT IN W/C BY SERENA BARRAGAN.
--- NOTE | 2018-11-15 13:28 | NUR ---
PRESCRIPTIONS CALLED TO [facility] PER PT REQUEST.
== END 2018-11-15 13:12 | disposition home or self-care (01) | DRG 386 ==
LOC: SURS 16:18 → PCU 11-11 20:32 → SURS 11-11 20:32 → PCU 11-11 20:32 → SURS 11-13 12:24
PROVIDERS: Family Medicine; Surgery; ADMIT Internal Medicine
PROC: 5A09357 Assistance with Respiratory Ventilation, Less than 24 Consecutive Hours, Continuous Positive Airway Pressure (ICD-10-PCS; principal; 2018-11-08)
DX: K50.00 Crohn's disease of small intestine without complications (principal); N39.0 Urinary tract infection, site not specified; K35.80 Unspecified acute appendicitis; Z86.73 Personal history of transient ischemic attack (TIA), and cerebral infarction without residual deficits; M10.9 Gout, unspecified; Z96.641 Presence of right artificial hip joint; I48.0 Paroxysmal atrial fibrillation; N18.3 Chronic kidney disease, stage 3 (moderate); I12.9 Hypertensive chronic kidney disease with stage 1 through stage 4 chronic kidney disease, or unspecified chronic kidney disease; E78.5 Hyperlipidemia, unspecified; F03.90 Unspecified dementia, unspecified severity, without behavioral disturbance, psychotic disturbance, mood disturbance, and anxiety; B96.20 Unspecified Escherichia coli [E. coli] as the cause of diseases classified elsewhere; R62.7 Adult failure to thrive; Z68.34 Body mass index [BMI] 34.0-34.9, adult; N39.3 Stress incontinence (female) (male)
CPT/HCPCS: 36415; 74022; 74177; 80048; 80053; 81001; 83605; 83690; 83735; 84100; 85025; 85027; 87077; 87086; 87147; 87186; 93005; 93010; 97162; 97165; 97530; 97535; A9270; C9113; J0360; J0696; J1170; J1644; J1650; J2405; J2543; J2765; J7030; J7050; Q9967

== ENCOUNTER 2018-12-16 22:52 | Observation (INO) | payer MEDICARE, OTHER ==
[~2018-12-16] VITALS: Ht 160 cm; Wt 91.4 kg
[~2018-12-16 22:52] MED LIST changes: +ACET325 PO; +CYAN500 PO; +GALA8 PO; +PREVALITE PAC4 G/PKT PO; +TRIM100 PO
[2018-12-17 00:53] LABS: BASOPHILS ABSOLUTE AUTO 0.05 K/mm3 (0.00-0.23); BASOPHILS PERCENT AUTO 1 % (0-2); EOSINOPHILS ABSOLUTE AUTO 0.06 K/mm3 (0.00-0.68); EOSINOPHILS PERCENT AUTO 1 % (0-6); Hematocrit 40.2 % (33.0-51.0); Hemoglobin 13.1 g/dL (11.5-16.0); IMMATURE GRAN ABSOLUTE AUTO 0.03 K/mm3 (0.00-0.10); IMMATURE GRAN PERCENT AUTO 0 % (0-1); LYMPHOCYTES ABSOLUTE AUTO 0.92 K/mm3 (0.84-5.20); LYMPHOCYTES PERCENT AUTO 11 % (21-46); MONOCYTES ABSOLUTE AUTO 0.87 K/mm3 (0.16-1.47); MONOCYTES PERCENT AUTO 11 % (4-13); Mean Corpuscular HGB 34.5 pg (26.0-34.0); Mean Corpuscular HGB Conc 32.6 g/dL (31.5-36.5); Mean Corpuscular Volume 106 fL (80-100); Mean Platelet Volume 10.3 fL (9.1-12.4); NEUTROPHILS ABSOLUTE AUTO 6.39 K/mm3 (1.96-9.15); NEUTROPHILS PERCENT AUTO 77 % (41-73); Platelet Count 170 K/mm3 (150-400); RDW Coefficient Variation 12.7 % (11.7-14.2); RDW Standard Deviation 49.8 fL (35.1-46.3); White Blood Cell Count 8.32 K/mm3 (4.00-11.30)
[2018-12-17 01:07] LABS: Source, Urine Clean Catch
[2018-12-17 01:12] LABS: Albumin, Blood 3.3 g/dL (3.4-5.0); Albumin/Globulin Ratio 0.9 (0.8-1.8); Bilirubin, Total 0.5 mg/dL (0.1-1.0); Bun/Creatinine Ratio 21.1 (12.0-20.0); Calcium, Blood 8.6 mg/dL (8.5-10.1); Creatinine, Blood 1.33 mg/dL (0.40-1.00); Globulin, Blood 3.6 g/dL (2.2-4.0); Potassium, Blood 4.2 mmol/L (3.5-5.5); Total Protein, Blood 6.9 g/dL (6.4-8.2)
[2018-12-17 01:14] LABS: Bilirubin, Urine Neg (Neg); Blood, Urine 1+ (Neg); Glucose Qualitative, Urine Neg (Neg); Ketones, Urine Neg (Neg); Leukocyte Esterase, Urine Neg (Neg); Nitrite, Urine Neg (Neg); Protein, Urine 3+ (Neg); Specific Gravity, Urine 1.025 (1.003-1.022); Urobilinogen, Urine NORM (Normal)
[2018-12-17 01:17] LABS: Appearance, Urine Clear (Clear); Color, Urine Yellow (P-Yellow)
[2018-12-17 01:22] LABS: Bacteria Rare /hpf; Hyaline Casts 0-2 /lpf (0-2); Red Blood Cells, Urine Rare /hpf (0-2); Squamous Epithelial Cells Few /hpf (Few); White Blood Cells, Urine 0-2 /hpf (0-5)
--- NOTE | 2018-12-17 06:02 | NUR ---
SHIFT SUMMARY NEW ADMIT THIS AM. AAOX4/CONFUSED AT TIMES. LUE IN SLING. DISCOMFORT INCREASED WITH MOVEMENT, DENIES WHEN REST. NPO THIS AM FOR ORTHO CONSULT. 1 PERSON MODERATE ASSIST UP TO RESTROOM. BED ALARM ON FOR SAFETY + CALL LIGHT IN REACH.
--- NOTE | 2018-12-17 16:50 | NUR ---
SHIFT SUMMARY ORTHO CONSULTED TODAY, NON-SURGICAL. THERAPY WORKED WITH PT THIS AFTERNOON. WORKING ON PAIN MANAGEMENT. PT CONFUSED AT TIMES, DAUGHTER STATES THIS IS HER NORMAL. L ARM IN SLING T/O MY SHIFT.
--- NOTE | 2018-12-18 07:10 | NUR ---
SHIFT SUMMARY HAS HAD A RESTFUL SHIFT AFTER USING THE BSC 3 TIMES IN UNDER 3HRS. AFTER 3RD TIME SHE OPTED FOR THE USE OF THE BEDPAN. DENIES FURTHER NEEDS OR WANTS AT THIS TIME. SAFETY MEASURES IN PLACE. WILL GIVE HAND OFF TO ONCOMING SHIFT USING SBAR.
[2018-12-18 09:47] LABS: Calcium, Blood 8.3 mg/dL (8.5-10.1); Creatinine, Blood 1.05 mg/dL (0.40-1.00); Potassium, Blood 4.5 mmol/L (3.5-5.5)
[2018-12-18] MEDS ORDERED: TRAM50 PO (14:46)
--- NOTE | 2018-12-18 15:35 | NUR ---
DISCHARGE SCRIPT FOR TRAMADOL GIVEN TO DAUGHTER, PT WORKED WITH PT/OT AND WAS DOING WELL. DISCUSSED FALL PRECAUTIONS. ESCORTED TO CAR VIA W/C AND ASSISTED INTO CAR.
== END 2018-12-18 15:43 | disposition home or self-care (01) ==
LOC: ER 22:52 → SURS 22:53
PROVIDERS: Emergency Medicine; Internal Medicine Endocrinology, Diabetes & Metabolism; ADMIT Internal Medicine
DX: S42.212A Unspecified displaced fracture of surgical neck of left humerus, initial encounter for closed fracture (principal); S42.302A Unspecified fracture of shaft of humerus, left arm, initial encounter for closed fracture; I12.9 Hypertensive chronic kidney disease with stage 1 through stage 4 chronic kidney disease, or unspecified chronic kidney disease; N18.3 Chronic kidney disease, stage 3 (moderate); I48.0 Paroxysmal atrial fibrillation; F03.90 Unspecified dementia, unspecified severity, without behavioral disturbance, psychotic disturbance, mood disturbance, and anxiety; Z86.73 Personal history of transient ischemic attack (TIA), and cerebral infarction without residual deficits; Z86.718 Personal history of other venous thrombosis and embolism; Z87.891 Personal history of nicotine dependence; Z91.040 Latex allergy status; Z88.8 Allergy status to other drugs, medicaments and biological substances; Z88.5 Allergy status to narcotic agent; Z91.048 Other nonmedicinal substance allergy status; Z79.899 Other long term (current) drug therapy; W01.0XXA Fall on same level from slipping, tripping and stumbling without subsequent striking against object, initial encounter
CPT/HCPCS: 36415; 71046; 73030; 73060; 73590; 80048; 80053; 81001; 85025; 87081; 93005; 93010; 96372; 96374; 96375; 96376; 97110; 97116; 97162; 97166; 97530; 97535; 99284-25; A9270; G0378; J1650; J1885; J2405; J3010

== ENCOUNTER → 2019-04-09 | Outpatient (CLI) | payer MEDICARE, OTHER ==
[~2019-04-09] MED LIST changes: +TRAM50 PO
[2019-04-09 12:48] LABS: Albumin, Blood 3.2 g/dL (3.4-5.0); Albumin/Globulin Ratio 0.7 (0.8-1.8); Bilirubin, Total 0.4 mg/dL (0.1-1.0); Calcium, Blood 8.4 mg/dL (8.5-10.1); Creatinine, Blood 1.36 mg/dL (0.40-1.00); Globulin, Blood 4.3 g/dL (2.2-4.0); Potassium, Blood 4.8 mmol/L (3.5-5.5); Total Protein, Blood 7.5 g/dL (6.4-8.2)
[2019-04-09 12:49] LABS: BASOPHILS ABSOLUTE AUTO 0.03 K/mm3 (0.00-0.23); BASOPHILS PERCENT AUTO 1 % (0-2); EOSINOPHILS ABSOLUTE AUTO 0.05 K/mm3 (0.00-0.68); EOSINOPHILS PERCENT AUTO 2 % (0-6); Hematocrit 44.5 % (33.0-51.0); Hemoglobin 14.6 g/dL (11.5-16.0); IMMATURE GRAN ABSOLUTE AUTO 0.02 K/mm3 (0.00-0.10); IMMATURE GRAN PERCENT AUTO 1 % (0-1); LYMPHOCYTES PERCENT AUTO 33 % (21-46); MONOCYTES ABSOLUTE AUTO 0.56 K/mm3 (0.16-1.47); MONOCYTES PERCENT AUTO 18 % (4-13); Mean Corpuscular HGB 32.9 pg (26.0-34.0); Mean Corpuscular HGB Conc 32.8 g/dL (31.5-36.5); Mean Corpuscular Volume 100 fL (80-100); Mean Platelet Volume 9.8 fL (9.1-12.4); NEUTROPHILS ABSOLUTE AUTO 1.41 K/mm3 (1.96-9.15); NEUTROPHILS PERCENT AUTO 46 % (41-73); Platelet Count 146 K/mm3 (150-400); RDW Coefficient Variation 13.1 % (11.7-14.2); RDW Standard Deviation 48.5 fL (35.1-46.3); Red Blood Cell Count 4.44 M/mm3 (3.80-5.20); White Blood Cell Count 3.07 K/mm3 (4.00-11.30)
== END ==
LOC: LAB SHORT 12:31 → LAB EV 12:31
PROVIDERS: Emergency Medicine
DX: N39.0 Urinary tract infection, site not specified (principal); R10.31 Right lower quadrant pain
CPT/HCPCS: 80053; 85025; 87086

== ENCOUNTER 2019-05-30 21:53 | Emergency (ER) | payer MEDICARE, OTHER ==
[~2019-05-30] VITALS: Ht 162.6 cm; Wt 102.1 kg
[2019-05-30 22:54] LABS: BASOPHILS ABSOLUTE AUTO 0.04 K/mm3 (0.00-0.23); BASOPHILS PERCENT AUTO 1 % (0-2); EOSINOPHILS ABSOLUTE AUTO 0.11 K/mm3 (0.00-0.68); EOSINOPHILS PERCENT AUTO 2 % (0-6); Hematocrit 41.5 % (33.0-51.0); Hemoglobin 13.3 g/dL (11.5-16.0); IMMATURE GRAN ABSOLUTE AUTO 0.01 K/mm3 (0.00-0.10); IMMATURE GRAN PERCENT AUTO 0 % (0-1); LYMPHOCYTES ABSOLUTE AUTO 1.19 K/mm3 (0.84-5.20); LYMPHOCYTES PERCENT AUTO 22 % (21-46); MONOCYTES PERCENT AUTO 15 % (4-13); Mean Corpuscular HGB 33.5 pg (26.0-34.0); Mean Corpuscular Volume 105 fL (80-100); Mean Platelet Volume 9.8 fL (9.1-12.4); NEUTROPHILS ABSOLUTE AUTO 3.23 K/mm3 (1.96-9.15); NEUTROPHILS PERCENT AUTO 60 % (41-73); Platelet Count 166 K/mm3 (150-400); RDW Standard Deviation 50.4 fL (35.1-46.3); Red Blood Cell Count 3.97 M/mm3 (3.80-5.20); White Blood Cell Count 5.38 K/mm3 (4.00-11.30)
[2019-05-30 23:13] LABS: Alanine Aminotransfer (ALT/SGP 23 U/L (12-78); Albumin, Blood 3.4 g/dL (3.4-5.0); Albumin/Globulin Ratio 0.8 (0.8-1.8); Alk Phos 74 U/L (50-136); Anion Gap 7 mmol/L (6-16); Aspartate Aminotrans (AST/SGOT 25 U/L (12-37); Bilirubin, Total 0.6 mg/dL (0.1-1.0); Blood Urea Nitrogen 17 mg/dL (8-24); CO2, Blood 26 mmol/L (21-32); Calcium, Blood 8.9 mg/dL (8.5-10.1); Chloride, Blood 107 mmol/L (98-108); Creatinine, Blood 1.21 mg/dL (0.40-1.00); Globulin, Blood 4.5 g/dL (2.2-4.0); Glomerular Filtration Rate 46 (60-); Glucose, Blood 86 mg/dL (70-99); Potassium, Blood 4.4 mmol/L (3.5-5.5); Sodium, Blood 140 mmol/L (136-145); Total Protein, Blood 7.9 g/dL (6.4-8.2); Troponin I <0.015 ng/mL (0.000-0.040)
[2019-05-30] MEDS ORDERED: TIZA4 PO (23:35)
== END 2019-05-31 00:12 | disposition home or self-care (01) ==
LOC: ER 21:53
PROVIDERS: Emergency Medicine
DX: J06.9 Acute upper respiratory infection, unspecified (principal); J38.5 Laryngeal spasm; I10 Essential (primary) hypertension; Z87.891 Personal history of nicotine dependence; Z79.899 Other long term (current) drug therapy
CPT/HCPCS: 36415; 71046; 80053; 84484; 85025; 93005; 93010; 96374; 99285-25; A9270; J2060

== ENCOUNTER 2021-01-29 20:07 | Emergency (ER) | payer OTHER, MEDICARE ==
[~2021-01-29] VITALS: Ht 167.6 cm; Wt 94.8 kg
[~2021-01-29 20:07] MED LIST changes: +TIZA4 PO
[2021-01-29] MEDS ORDERED: POTA8 PO (20:39)
[2021-01-29] MEDS ORDERED: CEPH250A PO (20:39)
[2021-01-29] MEDS ORDERED: FURO40 PO (20:39)
[2021-01-29] MEDS ORDERED: Norco 5-325 Ta1 EACH PO (21:58)
== END 2021-01-29 22:10 | disposition home or self-care (01) ==
LOC: ER 20:07
DX: S42.294A Other nondisplaced fracture of upper end of right humerus, initial encounter for closed fracture (principal); S00.83XA Contusion of other part of head, initial encounter; I12.9 Hypertensive chronic kidney disease with stage 1 through stage 4 chronic kidney disease, or unspecified chronic kidney disease; N18.30 Chronic kidney disease, stage 3 unspecified; I48.0 Paroxysmal atrial fibrillation; F03.90 Unspecified dementia, unspecified severity, without behavioral disturbance, psychotic disturbance, mood disturbance, and anxiety; Z87.891 Personal history of nicotine dependence; Z79.899 Other long term (current) drug therapy; Z79.01 Long term (current) use of anticoagulants; Z91.048 Other nonmedicinal substance allergy status; Z88.5 Allergy status to narcotic agent; Z88.8 Allergy status to other drugs, medicaments and biological substances; W01.0XXA Fall on same level from slipping, tripping and stumbling without subsequent striking against object, initial encounter
CPT/HCPCS: 36415; 70450; 73030; 73060; 96374; 96375; 99284-25; J2270; J2405

== ENCOUNTER → 2022-08-01 | Outpatient (CLI) | payer MEDICARE, OTHER ==
[~2022-08-01] MED LIST changes: +CEPH250A PO; +Norco 5-325 Ta1 EACH PO; +POTA8 PO
== END | disposition home or self-care (01) ==
LOC: LAB SHORT 17:55 → LAB 17:55
DX: N39.0 Urinary tract infection, site not specified (principal)
CPT/HCPCS: 87086

== ENCOUNTER → 2022-08-15 | Outpatient (CLI) | payer MEDICARE, OTHER ==
[2022-08-15 18:21] LABS: Source, Urine Clean Catch
[2022-08-15 19:26] LABS: Appearance, Urine Hazy (Clear); Bilirubin, Urine Neg (Neg); Blood, Urine Neg (Neg); Color, Urine Yellow (P-Yellow); Glucose Qualitative, Urine Neg (Neg); Ketones, Urine Neg (Neg); Leukocyte Esterase, Urine 3+ (Neg); Nitrite, Urine Neg (Neg); Protein, Urine 1+ (Neg); Urobilinogen, Urine NORM (Normal)
[2022-08-15 20:00] LABS: Bacteria Mod /hpf; Red Blood Cells, Urine Not Seen /hpf (0-2); Squamous Epithelial Cells Not Seen /hpf (Few); White Blood Cells, Urine TNTC /hpf (0-5)
== END | disposition home or self-care (01) ==
LOC: LAB 18:19 → LAB SHORT 18:19
PROVIDERS: Internal Medicine
DX: N39.0 Urinary tract infection, site not specified (principal)
CPT/HCPCS: 81001; 87077; 87086; 87186

== ENCOUNTER → 2022-11-03 | Outpatient (CLI) | payer MEDICARE, OTHER | END | disposition home or self-care (01) | LOC: LAB SHORT 12:58 → LAB 12:58 | DX: N39.0 Urinary tract infection, site not specified (principal) | CPT/HCPCS: 87077; 87086; 87186 ==

== ENCOUNTER → 2022-11-15 | Outpatient (CLI) | payer MEDICARE, OTHER | END | disposition home or self-care (01) | LOC: LAB 15:27 → LAB SHORT 15:27 | DX: R30.0 Dysuria (principal) | CPT/HCPCS: 87086 ==

== ENCOUNTER → 2023-01-17 | Outpatient (CLI) | payer MEDICARE, OTHER ==
[2023-01-17 14:06] LABS: Source, Urine Clean Catch
[2023-01-17 15:36] LABS: Appearance, Urine Clear (Clear); Bilirubin, Urine Neg (Neg); Blood, Urine Neg (Neg); Color, Urine Pale Yellow (P-Yellow); Glucose Qualitative, Urine Neg (Neg); Ketones, Urine Neg (Neg); Leukocyte Esterase, Urine Neg (Neg); Nitrite, Urine Neg (Neg); Protein, Urine Neg (Neg); Specific Gravity, Urine 1.015 (1.003-1.022); Urobilinogen, Urine NORM (Normal)
== END | disposition home or self-care (01) ==
LOC: LAB SHORT 11:25 → LAB 11:25
PROVIDERS: Internal Medicine
DX: N39.0 Urinary tract infection, site not specified (principal)
CPT/HCPCS: 81003

== ENCOUNTER → 2023-03-27 | Outpatient (CLI) | payer MEDICARE, OTHER ==
[2023-03-27 15:06] LABS: Source, Urine Clean Catch
[2023-03-27 16:30] LABS: Appearance, Urine Clear (Clear); Bilirubin, Urine Neg (Neg); Blood, Urine Neg (Neg); Glucose Qualitative, Urine Neg (Neg); Ketones, Urine Neg (Neg); Leukocyte Esterase, Urine Neg (Neg); Nitrite, Urine Neg (Neg); Protein, Urine Neg (Neg); Urobilinogen, Urine NORM (Normal)
[2023-03-27 16:37] LABS: Color, Urine Pale Yellow (P-Yellow)
== END ==
LOC: LAB 10:00 → LAB SHORT 10:00
PROVIDERS: Internal Medicine
DX: N39.0 Urinary tract infection, site not specified (principal)
CPT/HCPCS: 81003

== ENCOUNTER → 2023-05-14 | Outpatient (CLI) | payer MEDICARE, OTHER ==
[2023-05-15 12:18] LABS: Source, Urine Clean Catch
[2023-05-15 14:23] LABS: Appearance, Urine Hazy (Clear); Bilirubin, Urine Neg (Neg); Blood, Urine Neg (Neg); Glucose Qualitative, Urine Neg (Neg); Ketones, Urine Neg (Neg); Leukocyte Esterase, Urine 3+ (Neg); Nitrite, Urine Neg (Neg); Protein, Urine 1+ (Neg); Urobilinogen, Urine NORM (Normal)
[2023-05-15 16:17] LABS: Color, Urine Pale Yellow (P-Yellow)
[2023-05-15 16:18] LABS: Bacteria Mod /hpf; Red Blood Cells, Urine Not Seen /hpf (0-2); Squamous Epithelial Cells Few /hpf (Few); White Blood Cells, Urine 25-50 /hpf (0-5)
== END ==
LOC: LAB SHORT 05-12 12:11 → LAB 12:11
PROVIDERS: Internal Medicine
DX: N39.0 Urinary tract infection, site not specified (principal)
CPT/HCPCS: 81001; 87086

== ENCOUNTER 2023-12-25 12:23 | Emergency (ER) | payer MEDICARE, OTHER ==
[~2023-12-25] VITALS: Ht 152.4 cm; Wt 73.5 kg
[2023-12-25] MEDS ORDERED: NS 1,000 ML IV SCH (12:30)
[2023-12-25 13:40] LABS: BASOPHILS ABSOLUTE AUTO 0.03 K/mm3 (0.00-0.23); BASOPHILS PERCENT AUTO 1 % (0-2); EOSINOPHILS ABSOLUTE AUTO 0.08 K/mm3 (0.00-0.68); EOSINOPHILS PERCENT AUTO 2 % (0-6); Hematocrit 44.3 % (33.0-51.0); Hemoglobin 14.7 g/dL (11.5-16.0); IMMATURE GRAN ABSOLUTE AUTO 0.01 K/mm3 (0.00-0.10); IMMATURE GRAN PERCENT AUTO 0 % (0-1); LYMPHOCYTES ABSOLUTE AUTO 1.46 K/mm3 (0.84-5.20); LYMPHOCYTES PERCENT AUTO 28 % (21-46); MONOCYTES ABSOLUTE AUTO 0.48 K/mm3 (0.16-1.47); MONOCYTES PERCENT AUTO 9 % (4-13); Mean Corpuscular HGB 34.3 pg (26.0-34.0); Mean Corpuscular HGB Conc 33.2 g/dL (31.5-36.5); Mean Corpuscular Volume 103 fL (80-100); Mean Platelet Volume 9.4 fL (9.1-12.4); NEUTROPHILS ABSOLUTE AUTO 3.25 K/mm3 (1.96-9.15); NEUTROPHILS PERCENT AUTO 61 % (41-73); Platelet Count 179 K/mm3 (150-400); RDW Standard Deviation 46.3 fL (35.1-46.3); Red Blood Cell Count 4.29 M/mm3 (3.80-5.20); White Blood Cell Count 5.31 K/mm3 (4.00-11.30)
[2023-12-25 14:07] LABS: Albumin, Blood 3.4 g/dL (3.4-5.0); Albumin/Globulin Ratio 0.8 (0.8-1.8); Bilirubin, Total 0.8 mg/dL (0.1-1.0); Bun/Creatinine Ratio 29.4 (12.0-20.0); Calcium, Blood 9.3 mg/dL (8.5-10.1); Creatinine, Blood 0.95 mg/dL (0.40-1.00); Globulin, Blood 4.3 g/dL (2.2-4.0); Potassium, Blood 4.1 mmol/L (3.5-5.5); Total Protein, Blood 7.7 g/dL (6.4-8.2)
[2023-12-25 16:58] LABS: Source, Urine Straight Cath
[2023-12-25 17:02] LABS: Appearance, Urine Hazy (Clear); Bilirubin, Urine Neg (Neg); Blood, Urine 2+ (Neg); Glucose Qualitative, Urine Neg (Neg); Ketones, Urine Neg (Neg); Leukocyte Esterase, Urine 3+ (Neg); Nitrite, Urine Pos (Neg); Protein, Urine 1+ (Neg); Specific Gravity, Urine 1.005 (1.003-1.022); Urobilinogen, Urine NORM (Normal)
[2023-12-25 17:08] LABS: Color, Urine Pale Yellow (P-Yellow)
[2023-12-25 17:09] LABS: Bacteria Mod /hpf; Squamous Epithelial Cells Few /hpf (Few); White Blood Cells, Urine 25-50 /hpf (0-5)
[2023-12-25 17:10] LABS: Transitional Epithelial Cells Rare /hpf (0-Rare)
[2023-12-25 17:45] VITALS: BP 133/100
[2023-12-25] MEDS ORDERED: Cefdinir 300 MG Cap PO ONE (18:05)
[2023-12-25] MEDS ORDERED: Diflucan100 MG PO (18:07)
[2023-12-25] MEDS ORDERED: CEFD300 PO (18:07)
== END 2023-12-25 18:20 | disposition home or self-care (01) ==
LOC: ER 12:23
PROVIDERS: Emergency Medicine
DX: E86.0 Dehydration (principal); R41.82 Altered mental status, unspecified
CPT/HCPCS: 74177; 80053; 81001; 82272; 85025; 87077; 87086; 87186; 93005; 93010; 99284-25; A9270; J7030; Q9967